=== PATIENT | female | born 1980 | race African-American/Black ===

== ENCOUNTER → 2017-05-20 | Outpatient (CLI) | payer OTHER ==
--- NOTE | ~2017-05-20 | US6 ---
[facility] A Service of [facility] & [facility] RADIOLOGY TEXT RESULTS PATIENT: CELESTINE DOBBS LOCATION: [facility] : 76 UNIT #: [id number] AGE: [address]: Jason Whitehead MD SEX: F ORDER DR: [id number] [facility] [address] [place], [place] [address] [id number] O MR#: [id number] Acc #: [id number] NAME: CELESTINE DOBBS : 1980 SEX: F STUDY DATE/TIME: 05/20/2017 9:48 UNIT: [facility] ROOM: STUDY DESCRIPTION: US Abdominal Limited Attending Physician: Jason Whitehead M.D. Referring Physician: Jason Whitehead M.D. Ordering Physician: Jason Whitehead M.D. Primary Care Physician: Michelle Clarke M.D. MEDICAL IMAGING REPORT This report is preliminary unless electronic signature is present EXAM Right upper quadrant ultrasound. HISTORY Intermittent abdominal pain for a little over a year. TECHNIQUE Castaneda-scale and color and sonographic images were obtained through the right upper quadrant. FINDINGS Visualized portions of the pancreas appear unremarkable. Liver is homogeneous in echotexture. No focal hepatic lesions are seen. There is no intra or extrahepatic biliary dilatation. Right kidney is normal in appearance. No solid or cystic renal masses are identified. There is no hydronephrosis. No stones or sludge are seen within the gallbladder. There is no gallbladder wall thickening or pericholecystic fluid. IMPRESSION Normal right upper quadrant ultrasound. Dictated by... Carmen Amezquita M.D. THIS IS AN ELECTRONICALLY VERIFIED REPORT Carmen Amezquita M.D. at 05/21/2017 5:41 PM AFF/gz TD: 05/20/2017 16:39 JOB #: [id number] MEDICAL IMAGING REPORT Page 1 of 1 COPY
[2017-05-20 09:35] LABS: HEMATOCRIT 32.5 % (35.0-45.0); HEMOGLOBIN 11.2 gm/dL (12.0-16.0); MEAN CELL VOLUME 82.4 FL (83-96); MEAN CORPUSCULAR HEMOGLOBIN 28.3 PG (28-34); MEAN CORPUSCULAR HGB CONC 34.3 g/dL (30-36); MEAN PLATELET VOLUME 5.9 FL (6.5-11.5); RED BLOOD COUNT 3.95 X10e (3.90-5.30); RED CELL DISTRIBUTION WIDTH 14.1 % (11.0-15.5); WHITE BLOOD COUNT 7.3 X10e3 (4.0-10.5)
[2017-05-20 10:06] LABS: ALBUMIN SERUM 3.6 g/dL (3.5-5.0); BILIRUBIN,TOTAL 0.1 mg/dL (0.2-2.0); BUN/CREATININE RATIO 6.66; CALCIUM SERUM 8.4 mg/dL (8.4-10.2); CREATININE SERUM 0.9 mg/dL (0.6-1.4); GLOM FILT RATE Estimated 93.4 mL/min (>60); POTASSIUM 3.4 mmol/L (3.5-5.1); PROTEIN TOTAL SERUM 6.6 g/dL (6.0-8.3)
== END | disposition home or self-care (01) ==
LOC: CGUS 08:56
PROVIDERS: Internal Medicine
DX: R10.13 Epigastric pain (principal)
CPT/HCPCS: 36415; 76705; 80053; 85027